=== PATIENT | female | born 1995 | race Caucasian/White ===

== ENCOUNTER 2021-01-20 19:48 | Observation (INO) ==
[2021-01-20] MEDS ORDERED: Lidocaine/EPI 1:100k 1% 30 ML VIAL INFILT ONE (19:54)
[2021-01-20 20:48] LABS: Bilirubin,Urine Negative (Negative); Blood,Urine Negative (Negative); Clarity,Urine Clear (Clear); Color,Urine Light-Yellow (Yellow); Glucose,Urine (UA) Normal (Normal); Ketones,Urine Negative (Negative); Leukocyte Esterase,Urine Negative (Negative); Nitrite,Urine Negative (Negative); PH,Urine 5.5 pH Units (5.0-8.0); Protein,Urine Negative (Neg-Trace); Specific Gravity,Urine 1.022 (1.010-1.025); Urobilinogen,Urine Normal (Normal)
[2021-01-20 20:54] LABS: Basophils % 0.7 %; Eosinophils # 0.3 K/mcL (0.0-0.6); Eosinophils % 5.8 %; Hematocrit 43.2 % (35.3-44.9); Hemoglobin 14.5 g/dL (11.5-15.4); Lymphocytes # 2.4 K/mcL (0.6-4.6); Mean Corpuscular HGB Conc 33.6 g/dL (31.6-35.5); Mean Corpuscular Hemoglobin 32.4 pg (28.0-33.3); Mean Corpuscular Volume 96.6 fL (83.0-100.0); Mean Platelet Volume 9.6 fL (9.4-12.4); Monocytes # 0.3 K/mcL (0.0-1.3); Monocytes % 5.2 %; Neutrophils # 2.4 K/mcL (1.6-8.9); Platelet Count 279 K/mcL (140-400); Red Blood Count 4.47 M/mcL (3.82-4.97); Segmented Neutrophils % 44.3 %; White Blood Count 5.4 K/mcL (4.3-11.1)
[2021-01-20 21:00] LABS: Amphetamine Screen,Urine Negative ng/mL (Cutoff=1000); Barbiturate Screen,Urine Negative ng/mL (Cutoff=200); Benzodiazepines Screen,Urine Negative ng/mL (Cutoff=200); Cannabinoid Screen,Urine Negative ng/mL (Cutoff = 50); Cocaine Screen,Urine Negative ng/mL (Cutoff= 300); Opiate Screen,Urine Negative ng/mL (Cutoff=300); Phencyclidine Screen,Urine Negative ng/mL (Cutoff=25)
[2021-01-20 21:13] LABS: Acetaminophen < 10 mcg/mL (10-20); Alanine Aminotransferase 19 Units/L (7-52); Albumin 4.5 g/dL (3.5-5.7); Albumin/Globulin Ratio 1.8 (1.1-2.2); Alkaline Phosphatase 39 Units/L (34-104); Aspartate Amino Transferase 27 Units/L (13-39); BUN/Creatinine Ratio 18 (6-26); Bilirubin,Direct 0.1 mg/dL (0.0-0.2); Bilirubin,Indirect 0.3 mg/dL (0.0-1.0); Bilirubin,Total 0.4 mg/dL (0.3-1.0); Blood Urea Nitrogen 13 mg/dL (6-20); Calcium 8.9 mg/dL (8.6-10.3); Carbon Dioxide 24 mEq/L (23-29); Chloride 108 mEq/L (98-107); Ethanol 213 mg/dL (Less than 10); Globulin 2.5 g/dL (2.4-3.5); Glucose 97 mg/dL (70-105); Osmolality,Calculated 290 (280-300); Potassium 3.1 mEq/L (3.5-5.1); Salicylate < 2.5 mg/dL (15.0-30.0); Sodium 140 mEq/L (136-145); eGFR For African Americans > 60 (> 60); eGFR For Non-African Americans > 60 (> 60)
[2021-01-20 21:26] LABS: Thyroid Stimulating Hormone 3.587 mcIU/mL (0.340-5.600)
[2021-01-20] MEDS ORDERED: Ibuprofen 400 MG TABLET PO ONE (22:38)
[2021-01-21] MEDS ORDERED: Ondansetron ODT 4 MG TAB.RAPDIS ONE (03:53)
[2021-01-21] MEDS ORDERED: Haloperidol Lactate 5 MG/ML VIAL IM PRN (05:35)
[2021-01-21] MEDS ORDERED: traZODone 50 MG TABLET PO PRN (05:35)
[2021-01-21] MEDS ORDERED: haloperidoL 5 MG TABLET PO PRN (05:35)
[2021-01-21] MEDS ORDERED: MOM Conc 10 ML UD.LIQ PO PRN (05:35)
[2021-01-21] MEDS ORDERED: *HR* LORazepam 1 MG TABLET PO PRN (05:35)
[2021-01-21] MEDS ORDERED: Mag Hydrox/Al Hydrox/Simeth 30 ML UDC PO PRN (05:35)
[2021-01-21] MEDS ORDERED: Ibuprofen 400 MG TABLET PO PRN (05:35)
[2021-01-21] MEDS ORDERED: *HR* LORazepam 2 MG/ML VIAL IM PRN (05:35)
[2021-01-21] MEDS ORDERED: hydrOXYzine pamoate 25 MG CAPSULE PO PRN (05:35)
[2021-01-21 08:37] VITALS: BP 123/76
[2021-01-21] MEDS ORDERED: Td (TENIVAC) Vaccine 0.5 ML VIAL IM ONE (09:45)
== END 2021-01-21 10:55 | disposition home or self-care (01) ==
LOC: EMEROOARM 19:48 → 1ANU 19:48
PROVIDERS: ADMIT Psychiatry & Neurology Psychiatry; ATTEND Psychiatry & Neurology Psychiatry

== ENCOUNTER 2022-09-04 21:35 | Inpatient (IN) ==
[2022-09-04 22:42] LABS: Basophils # 0.1 K/mcL (0.0-0.2); Basophils % 0.9 %; Eosinophils # 0.1 K/mcL (0.0-0.6); Eosinophils % 1.7 %; Hemoglobin 15.9 g/dL (11.5-15.4); Immature Granulocytes % 0.3 % (0-4); Lymphocytes # 1.5 K/mcL (0.6-4.6); Lymphocytes % 21.3 %; Mean Corpuscular HGB Conc 34.6 g/dL (31.6-35.5); Mean Corpuscular Hemoglobin 32.3 pg (28.0-33.3); Mean Corpuscular Volume 93.5 fL (83.0-100.0); Mean Platelet Volume 9.5 fL (9.4-12.4); Monocytes # 0.5 K/mcL (0.0-1.3); Monocytes % 7.1 %; Neutrophils # 4.8 K/mcL (1.6-8.9); Platelet Count 286 K/mcL (140-400); Red Blood Count 4.92 M/mcL (3.82-4.97); Red Cell Distribution Width 13.3 % (11.5-14.5); Segmented Neutrophils % 68.7 %
[2022-09-04 22:50] LABS: Amphetamine Screen,Urine Negative ng/mL (Cutoff=1000); Barbiturate Screen,Urine Negative ng/mL (Cutoff=200); Benzodiazepines Screen,Urine Negative ng/mL (Cutoff=200); Cannabinoid Screen,Urine Negative ng/mL (Cutoff = 50); Cocaine Screen,Urine Negative ng/mL (Cutoff= 300); Opiate Screen,Urine Negative ng/mL (Cutoff=300); Phencyclidine Screen,Urine Negative ng/mL (Cutoff=25)
[2022-09-04 23:11] LABS: Bilirubin,Urine Negative (Negative); Blood,Urine Negative (Negative); Clarity,Urine Clear (Clear); Color,Urine Colorless (Yellow); Glucose,Urine (UA) Normal (Normal); Ketones,Urine Negative (Negative); Leukocyte Esterase,Urine Negative (Negative); Nitrite,Urine Negative (Negative); PH,Urine 6.5 pH Units (5.0-8.0); Protein,Urine Negative (Neg-Trace); Specific Gravity,Urine < 1.005 (1.010-1.025); Urobilinogen,Urine Normal (Normal)
[2022-09-04 23:39] LABS: Acetaminophen < 10 mcg/mL (10-20); Alanine Aminotransferase 30 Units/L (7-52); Albumin/Globulin Ratio 1.9 (1.1-2.2); Alkaline Phosphatase 43 Units/L (34-104); Aspartate Amino Transferase 32 Units/L (13-39); BUN/Creatinine Ratio 11 (6-26); Bilirubin,Total 0.8 mg/dL (0.3-1.0); Blood Urea Nitrogen 7 mg/dL (6-20); Calcium 9.2 mg/dL (8.6-10.3); Carbon Dioxide 22 mEq/L (23-29); Chloride 109 mEq/L (98-107); Creatine Kinase 184 Units/L (30-223); Ethanol 215 mg/dL (Less than 10); Globulin 2.6 g/dL (2.4-3.5); Glucose 93 mg/dL (70-105); Magnesium 2.2 mg/dL (1.6-2.6); Osmolality,Calculated 292 (280-300); Potassium 3.2 mEq/L (3.5-5.1); Salicylate < 2.5 mg/dL (15.0-30.0); Sodium 142 mEq/L (136-145); Thyroid Stimulating Hormone 4.718 mcIU/mL (0.340-5.600); Total Protein 7.6 g/dL (6.4-8.9); Troponin I < 0.03 ng/mL (< 0.04)
[2022-09-05 08:24] LABS: Influenza A PCR Negative (Negative); Influenza B PCR Negative (Negative); Resp. Syncytial Virus PCR Negative (Negative); SARS-CoV-2 by PCR (In House) Negative (Negative)
[2022-09-05] MEDS ORDERED: *HR* LORazepam 1 MG TABLET PO PRN ×2 (09:15→09:58)
[2022-09-05] MEDS ORDERED: *HR* LORazepam 2 MG/ML VIAL IM PRN (09:15)
[2022-09-05] MEDS ORDERED: traZODone 50 MG TABLET PO PRN (09:15)
[2022-09-05] MEDS ORDERED: Acetaminophen 325 MG TABLET PO PRN (09:15)
[2022-09-05] MEDS ORDERED: Ibuprofen 400 MG TABLET PO PRN (09:15)
[2022-09-05] MEDS ORDERED: haloperidoL 5 MG TABLET PO PRN (09:15)
[2022-09-05] MEDS ORDERED: hydrOXYzine pamoate 25 MG CAPSULE PO PRN (09:15)
[2022-09-05] MEDS ORDERED: Haloperidol Lactate 5 MG/ML VIAL IM PRN (09:15)
[2022-09-05] MEDS: FLUoxetine HCl 10 MG CAPSULE PO SCH (15:01)
[2022-09-06] MEDS ORDERED: traZODone 50 MG TABLET PO PRN (01:17)
[2022-09-06 08:17] VITALS: BP 124/90; PULSE 80; TEMP 97.8; O2SAT 96
[2022-09-06] MEDS: FLUoxetine HCl 10 MG CAPSULE PO SCH (08:37)
== END 2022-09-06 17:05 | disposition home or self-care (01) | DRG 751 ==
LOC: EMEROOARM 21:35 → 1ANU 09-05 09:23
PROVIDERS: ADMIT Psychiatry & Neurology Neurology; ATTEND Psychiatry & Neurology Neurology